=== PATIENT | male | born 1995 | race Caucasian/White ===

== ENCOUNTER 2017-08-25 19:57 | Emergency (ER) | payer SELFPAY ==
[2017-08-25 20:13] VITALS: BP 140/78; TEMP 99.2
[2017-08-25 20:27] LABS: BASO # 0.1 (0.0-0.2); BASO % 0.7 % (0.0-2.0); EOS # 0.5 (0.0-0.7); EOS % 3.4 % (0-4.0); GRAN # 10.1 (1.4-6.5); GRAN % 69.1 % (42.2-75.2); HEMATOCRIT 40.7 % (42.0-52.0); HEMOGLOBIN 14.1 g/dl (13.5-18.0); LYMPH # 2.5 (1.2-3.4); LYMPH % 17.4 % (20.0-51.0); MEAN CELL VOLUME 85 fl (80.0-100.0); MEAN CORPUSCULAR HEMOGLOBIN 29 pg (27.0-31.0); MEAN CORPUSCULAR HGB CONC 35 g/dl (33.0-37.0); MEAN PLATELET VOLUME 9.9 fl (7.4-10.4); MONO # 1.3 (0.1-0.6); MONO % 8.7 % (1.7-9.3); PLATELET COUNT 258 K/mm3 (130-400); RED BLOOD COUNT 4.81 M/mm3 (4.20-5.60); REDCELL DISTRIBUTION WIDTH-CV 12.4 % (11.5-14.5)
[2017-08-25 20:38] LABS: ALBUMIN 4.9 gm/dL (3.5-5.0); BILIRUBIN,TOTAL 0.4 mg/dL (0.0-1.0); CALCIUM 9.5 mg/dL (8.4-10.2); CREATININE, serum 0.88 mg/dL (0.66-1.25); POTASSIUM 3.7 mmol/L (3.4-5.0); TOTAL PROTEIN 8.3 gm/dL (6.4-8.2)
[2017-08-25] MEDS ORDERED: AMOXICILLIN 8751 TAB PO (21:20)
[2017-08-25 21:28] LABS: COLLECTION METHOD CLEAN CATCH
[2017-08-25 21:35] LABS: MUCOUS Present /lpf; PH 5 (5-8); SQUAMOUS EPITHELIAL 0-2 /hpf; URINE APPEARANCE Clear; URINE BACTERIA None Seen /hpf; URINE BILIRUBIN Negative (NEGATIVE); URINE BLOOD Negative (NEGATIVE); URINE COLOR Yellow; URINE GLUCOSE Negative (NEGATIVE); URINE KETONE Negative (NEGATIVE); URINE LEUKOCYTE ESTERASE Negative (NEGATIVE); URINE NITRATE Negative (NEGATIVE); URINE PROTEIN(semi-quant) Negative (NEGATIVE); URINE RBC 0-2 /hpf; URINE UROBILINOGEN Negative (NEGATIVE)
[2017-08-25 21:44] VITALS: PULSE 88
== END 2017-08-25 21:40 | disposition home or self-care (01) ==
LOC: COL.ER 19:57
PROVIDERS: Family Medicine
DX: S20.211A Contusion of right front wall of thorax, initial encounter (principal); S30.0XXA Contusion of lower back and pelvis, initial encounter; S80.01XA Contusion of right knee, initial encounter; S60.852A Superficial foreign body of left wrist, initial encounter; Z23 Encounter for immunization; V58.9XXA Unspecified occupant of pick-up truck or van injured in noncollision transport accident in traffic accident, initial encounter
CPT/HCPCS: J2405; J3010; Q9967

== ENCOUNTER 2017-08-27 12:37 | Emergency (ER) | payer OTHER ==
[~2017-08-27] VITALS: Ht 170.2 cm; Wt 79.9 kg
[~2017-08-27 12:37] MED LIST: AMOXICILLIN 8751 TAB PO
[2017-08-27 12:39] VITALS: BP 147/67; PULSE 78; TEMP 99.1
[2017-08-27] MEDS ORDERED: MOTRIN 800800 MG/TAB PO (13:32)
[2017-08-27] MEDS ORDERED: NORCO 325 MG-51 TAB PO (13:32)
== END 2017-08-27 13:40 | disposition home or self-care (01) ==
LOC: COL.ER 12:37
DX: S61.432A Puncture wound without foreign body of left hand, initial encounter (principal); R40.2412 Glasgow coma scale score 13-15, at arrival to emergency department; V87.8XXA Person injured in other specified noncollision transport accidents involving motor vehicle (traffic), initial encounter

== ENCOUNTER 2022-09-08 11:29 | Emergency (ER) | payer SELFPAY ==
[~2022-09-08] VITALS: Ht 167.6 cm; Wt 95.0 kg
[~2022-09-08 11:29] MED LIST changes: +MOTRIN 800800 MG/TAB PO; +NORCO 325 MG-51 TAB PO
[2022-09-08 11:43] VITALS: TEMP 98
[2022-09-08] MEDS ORDERED: NORCO 325 MG-7.1 TAB PO (14:13)
[2022-09-08 14:48] VITALS: BP 122/74; PULSE 97
== END 2022-09-08 15:53 | disposition home or self-care (01) ==
LOC: COL.ER 11:29
DX: S82.832A Other fracture of upper and lower end of left fibula, initial encounter for closed fracture (principal); Z28.310 Unvaccinated for COVID-19; W17.89XA Other fall from one level to another, initial encounter; X50.1XXA Overexertion from prolonged static or awkward postures, initial encounter; Y92.59 Other trade areas as the place of occurrence of the external cause; Y99.0 Civilian activity done for income or pay